=== PATIENT | male | born 1945 ===

== ENCOUNTER → 2017-10-30 13:25 | Outpatient (REF) | payer MEDICARE, SELFPAY | LOC: LAB 13:25 | PROVIDERS: Visit Provider Otolaryngology | DX: H72.02 Central perforation of tympanic membrane, left ear (principal); H66.002 Acute suppurative otitis media without spontaneous rupture of ear drum, left ear | CPT/HCPCS: 87070; 87075; 87077; 87147; 87186; 87205 ==